=== PATIENT | male | born 1970 | race Caucasian/White ===

== ENCOUNTER 2018-10-18 08:00 | Outpatient (RCR) | payer OTHER ==
[~2018-10-18 08:00] MED LIST: ASPI-757 PO; CLIN300C99 PO; GLIP-154 PO; METF-450 PO; NAPR-744 PO; OMEP-137 PO
--- NOTE | 2018-10-18 14:26 | Medical Nutrition Therapy ---
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 Pt states T2DM on multiple insulin shots and desires better BG control. Discussed medtronic 630 and [phone] insulin pump differences, pros and cons. Discussed Omnipod insulin pump pos and cons and gave sample. Discussed free style isaiah CGM. Pt currently has a sample and will try it for 2 weeks. Provided handout on CGM and discussed importance of checking and providing correction doses. Pt gave permission for [employer] rep to contact him and determine elegibility. Discussed importance of CHO counting. Pt will keep track of CHO intake and amount of insulin given to determine his CHO ratio. Discussed activity level and need for snack prior to heavy exercise to avoid high's caused by glycogen release. Pt declined DM class r/t his prior knowledge of diabetes. Pt will f/u following his meeting with [employer] rep. Nutrition Monitoring & Eval RD Patient Assessment Time: [address] Assessment Type: RD Education Nutritional Comment: Provided 60 minutes diabetes education Copies To Copies to: KANE WALLACE DO ; AGGIE ABDULLAHI Oct 18, 2018 14:26
== END 2018-11-22 ==
LOC: DIET 08:00
PROVIDERS: ATTEND Dietitian, Registered
DX: E11.65 Type 2 diabetes mellitus with hyperglycemia (principal); Z79.4 Long term (current) use of insulin; L70.0 Acne vulgaris; M25.552 Pain in left hip
CPT/HCPCS: G0108 ×2